=== PATIENT | female | born 1965 | race Two or more races ===

== ENCOUNTER 2018-01-23 15:22 | Outpatient (CLI) | payer OTHER ==
[~2018-01-23 15:22] MED LIST: ATORVASTATIN CA20 MG PO; EFFEXOR XR37.5 MG PO; METFORMIN HCL500 MG PO; PINDOLOL5 MG PO; [UNRECOGNIZED DRUG - OTHER]
== END 2018-01-23 15:30 | disposition home or self-care (01) ==
LOC: LAB 15:22
DX: R10.84 Generalized abdominal pain (principal); N39.0 Urinary tract infection, site not specified; K57.90 Diverticulosis of intestine, part unspecified, without perforation or abscess without bleeding

== ENCOUNTER 2018-09-01 10:08 | Outpatient (CLI) | payer OTHER | END 2018-09-01 10:13 | disposition home or self-care (01) | LOC: RAD 10:08 | DX: M26.629 Arthralgia of temporomandibular joint, unspecified side (principal); M25.571 Pain in right ankle and joints of right foot ==

== ENCOUNTER 2019-08-09 08:00 | Outpatient (CLI) | payer OTHER | END 2019-08-09 09:33 | disposition home or self-care (01) | LOC: NUCLEAR 08:00 | DX: R10.10 Upper abdominal pain, unspecified (principal) | CPT/HCPCS: 78227; A9537; J2805 ==

== ENCOUNTER 2024-06-11 22:32 | Emergency (ER) | payer OTHER ==
[~2024-06-11] VITALS: Ht 172.7 cm; Wt 87.1 kg
[2024-06-11] MEDS ORDERED: FAMOTIDINE/PF 20 MG in 0.9 % SODIUM CHLORIDE 8 ML IV PUSH STA (23:08)
[2024-06-11] MEDS ORDERED: ONDANSETRON HCL 2 MG/ML VIAL IV ONE (23:15)
[2024-06-11] MEDS ORDERED: HYOSCYAMINE SULFATE 0.125 MG TAB.SUBL SL ONE (23:15)
[2024-06-11] MEDS ORDERED: 0.9 % SODIUM CHLORIDE 1,000 ML IV SCH (23:15)
[2024-06-11] MEDS ORDERED: ACETAMINOPHEN 500 MG GEL..CAP PO ONE (23:45)
[2024-06-11 23:49] LABS: MEAN CORPUSCULAR HEMOGLOBIN 26.3 pg (27.00-32.0); MEAN CORPUSCULAR HGB CONC 32.5 g/dl (32.0-36.0); PLATELET COUNT 336 K/uL (150-450); RED BLOOD COUNT 4.94 M/uL (4.00-6.00)
[2024-06-12 00:16] LABS: ALBUMIN 3.8 gm/dL (3.4-5.0); BILIRUBIN TOTAL 0.79 mg/dL (0.3-1.2); CALCIUM 9.1 mg/dL (8.5-10.1); CREATININE SERUM 1.07 mg/dL (0.55-1.02); GFR 52.85; GLOBULINA 4.2 G/DL (2.4-3.5); POTASSIUM 3.96 mEq/L (3.5-5.1)
== END 2024-06-12 02:27 | disposition home or self-care (01) ==
LOC: ER 22:35
PROVIDERS: General Practice
DX: K52.9 Noninfective gastroenteritis and colitis, unspecified (principal); R11.10 Vomiting, unspecified; I10 Essential (primary) hypertension; E11.9 Type 2 diabetes mellitus without complications; Z79.84 Long term (current) use of oral hypoglycemic drugs